=== PATIENT | male | born 1930 | race Hispanic/Latino ===

== ENCOUNTER 2016-04-02 14:43 | Emergency (ER) | payer MEDICARE ==
[2016-04-02 15:03] VITALS: BP 139/83
--- NOTE | 2016-04-02 15:52 | Emergency Department Report ---
ED General Adult HPI - General Chief complaint: Recheck/Abnormal Lab/Rx Stated complaint: JAW PAIN Time Seen by Provider: 04/02/16 15:43 Source: patient Mode of arrival: Ambulatory Limitations: No Limitations - History of Present Illness Initial comments: 85 YOM with hx of right TMJ diseases and Trigeminal neuralgia presents requesting prescription for Neurontin or Tegretol per his PCP (Dr. Hyde) referral. Reports excruciating right jaw pain, pain with opening mouth, chewing. States condition ongoing for 50 years and worsened over last 6 weeks. States right jaw pain unresponsive to Hydrocodone taken as needed. Denies chest pain, pressure or discomfort, SOB, tooth decay/inflammation. Denies being on other meds including heart, diabetes, cholesterol, seizure meds. States otherwise in good general health for age. [facility] has appointment with neurologist on Tuesday04/05/16. Denies other acute complaints today. - Related Data Home Medications Medication Instructions Recorded Confirmed Last Taken HYDROcodone/APAP 5-325 [Mullen 1 tab PO Q6H 04/02/16 04/02/16 Unknown 5-325 mg TAB] Previous Rx's Medication Instructions Recorded Last Taken Type Gabapentin [Neurontin] 100 mg PO BID PRN #30 capsule 04/02/16 Unknown Rx Allergies Allergy/AdvReac Type Severity Reaction Status Date / Time No Known Allergies Allergy Unverified 04/02/16 16:04 ED Review of Systems ROS: Stated complaint: JAW PAIN Other details as noted in HPI ED Past Medical Hx - Past Medical History Previous Medical History?: Yes Additional medical history: TMJ - Surgical History Hx Cholecystectomy: Yes Additional Surgical History: TMJ X3/ RIGHT HIP - Social History Smoking Status: Never Smoker Substance Use Type: None - Medications Home Medications: Home Medications Medication Instructions Recorded Confirmed Last Taken Type Gabapentin [Neurontin] 100 mg PO BID PRN #30 capsule 04/02/16 Unknown Rx HYDROcodone/APAP 5-325 [Mullen 1 tab PO Q6H 04/02/16 04/02/16 Unknown History 5-325 mg TAB] ED Physical Exam - General Limitations: No Limitations General appearance: alert, in no apparent distress, other (In pain discomfort.) - Head Head exam: Present: atraumatic. Absent: normocephalic (right masseter muscle atrophy w/ prominent TMJ/jaw bones compared to left. No dislocation.) - Eye Eye exam: Present: normal appearance, PERRL, EOMI. Absent: scleral icterus, conjunctival injection, periorbital swelling, periorbital tenderness - ENT ENT exam: Present: normal orophraynx, mucous membranes moist, TM's normal bilaterally, normal external ear exam - Neck Neck exam: Present: normal inspection, full ROM. Absent: tenderness, meningismus, lymphadenopathy - Respiratory Respiratory exam: Present: normal lung sounds bilaterally. Absent: respiratory distress, chest wall tenderness, accessory muscle use, decreased breath sounds, prolonged expiratory - Cardiovascular Cardiovascular Exam: Present: regular rate, normal rhythm, other (No temporal artery tenderness.) - Extremities Exam Extremities exam: Present: normal inspection, normal capillary refill. Absent: tenderness, pedal edema, joint swelling - Neurological Exam Neurological exam: Present: alert, oriented X3, other (No facial paralysis.). Absent: motor sensory deficit - Psychiatric Psychiatric exam: Present: normal affect, normal mood - Skin Skin exam: Present: warm, dry, intact, normal color. Absent: rash, cyanosis, diaphoretic, erythema, pallor ED Course Vital Signs 04/02/16 14:59 Temperature 97.8 F Pulse Rate 88 Respiratory 20 Rate Blood Pressure 139/83 O2 Sat by Pulse 97 Oximetry ED Medical Decision Making - Medical Decision Making 85 YOM here for rx Neurontin for 48 YO TMJ and trigeminal neuralgia worsened x 6 weeks. Patient is stable. Rx given for Neurontin (see rx) per patient's request. Medication side effects fully discussed with patient and his daughter. He verbalized understanding and is agreeable to plan. Patient discussed with Dr. Calderón. He is agreeable to plan. Critical care attestation.: If time is entered above; I have spent that time in minutes in the direct care of this critically ill patient, excluding procedure time. ED Disposition Clinical Impression: Encounter for new medication prescription, TMJ (temporomandibular joint disorder), Weakness of masseter muscle Disposition: DISCHARGED TO HOME OR SELFCARE Is pt being admited?: No Does the pt Need Aspirin: No Condition: Stable Instructions: Temporomandibular Disorder (ED), Gabapentin (By mouth) Additional Instructions: Follow Instructions for care. Be Compliant with medication. Follow-up with your PCP, Dr. Hyde, for follow up. Keep appointment with neurologist, Dr. Myrick, on 04/05/15. Return to ED for new or worsening condition. Prescriptions: Gabapentin [Neurontin] 100 mg PO BID PRN #30 capsule PRN Reason: Pain Referrals: PRIMARY CARE,MD [Primary Care Provider] - 2-3 Days
[2016-04-02] MEDS ORDERED: BOOSTRIX IM ONE (15:55)
[2016-04-02] MEDS ORDERED: NEURONTIN ONE (16:15)
[2016-04-02] MEDS ORDERED: NEURONTIN PO ONE (16:33)
== END 2016-04-02 16:15 | disposition home or self-care (01) ==
LOC: ED 14:43
DX: M26.609 Unspecified temporomandibular joint disorder, unspecified side (principal); R53.1 Weakness
CPT/HCPCS: 90715; 99282